=== PATIENT | male | born 1970 | race Caucasian/White ===

== ENCOUNTER 2016-10-30 18:57 | Emergency (ER) | payer MEDICARE, OTHER ==
[~2016-10-30] VITALS: Ht 177.8 cm; Wt 95.0 kg
[~2016-10-30 18:57] MED LIST: ATOR20TA38 PO; CEPH500C PO; CHOL100062 PO; COU10 PO; COU75 PO; DOCU-159 PO; DOCU100C PO; GABA300C16 PO; GABA400C14 PO; IBUP400T22 PO
[2016-10-30 19:17] VITALS: Ht 177.8 cm; Wt 95.0 kg
[2016-10-30] MEDS ORDERED: KETOROLAC 60 MG INJ IM STA (21:12)
[2016-10-30] MEDS ORDERED: HYDROCODONE/APAP (10/325) TAB PO ONE (21:30)
[2016-10-30] MEDS ORDERED: TRAM50TA2 PO (22:23)
[2016-10-30 22:45] VITALS: BP 113/69; PULSE 79
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
== END 2016-10-30 23:00 | disposition home or self-care (01) ==
LOC: FTE 18:57
DX: M54.9 Dorsalgia, unspecified (principal); E11.9 Type 2 diabetes mellitus without complications; F17.210 Nicotine dependence, cigarettes, uncomplicated; Z79.01 Long term (current) use of anticoagulants
CPT/HCPCS: 96372; J1885

== ENCOUNTER 2016-12-26 17:55 | Inpatient (IN) | payer MEDICARE, OTHER ==
[~2016-12-26] VITALS: Ht 175.3 cm; Wt 107.9 kg
[~2016-12-26 17:55] MED LIST changes: +TRAM50TA2 PO
[2016-12-26] MEDS ORDERED: SOD CHLORIDE 0.9% 1,000 ML IV STA (18:38)
[2016-12-26] MEDS ORDERED: IBUPROFEN 600 MG TAB PO ONE (19:00)
[2016-12-26] MEDS ORDERED: GLIP5TAB13 PO (19:09)
[2016-12-26 19:28] LABS: ADD SCAN DIFF NO
[2016-12-26 19:29] LABS: ABNORMAL IP MESSAGE 1; BASOPHIL # 0.1 10^3/ul (0.0-0.1); BASOPHILS % 0.5 % (0.0-2.0); EOSINOPHILS # 0.2 10^3/ul (0.0-0.5); EOSINOPHILS % 1.6 % (0.0-7.0); HEMATOCRIT 45.5 % (42.0-52.0); HEMOGLOBIN 15.4 g/dl (14.0-18.0); LYMPHOCYTES % 27.3 % (15.0-51.0); MEAN CORPUSCULAR HEMOGLOBIN 29.8 pg (29.0-33.0); MEAN CORPUSCULAR HGB CONC 33.8 g/dl (32.0-37.0); MEAN CORPUSCULAR VOLUME 88.2 fl (82.0-101.0); MEAN PLATELET VOLUME 10.8 fl (7.4-10.4); MONOCYTE # 1.6 10^3/ul (0.3-0.9); MONOCYTES % 10.8 % (0.0-11.0); NEUTROPHIL # 8.8 10^3/ul (1.6-7.5); NEUTROPHILS % 59.5 % (39.0-77.0); PLATELET COUNT 287 10^3/UL (140-415); RED BLOOD COUNT 5.16 10^6/ul (4.70-6.10); RED CELL DISTRIBUTION WIDTH 14.8 % (11.5-14.5); WHITE BLOOD COUNT 14.8 10^3/ul (4.8-10.8)
--- NOTE | 2016-12-26 19:37 | RADRPT ---
PROCEDURE: Chest x-ray CLINICAL INDICATION: Abdominal pain TECHNIQUE: Chest single view COMPARISON: 10/29/2013 FINDINGS: The heart is normal in size. The pulmonary vessels are normal in caliber. There is enlarging mass-l marika area of consolidation left lower lobe. This should be further evaluated with CT. Right lung is clear. Costophrenic angles sharp. Bony thorax is unremarkable IMPRESSION: 1. Enlarging mass-like area of consolidation in the left lower lobe. Recommend chest CT for furthe r evaluation. 2. Otherwise no acute cardiopulmonary disease RPTAT: HH .Triston Enamorado MD, Date Time Electronically viewed and signed by .Triston Enamorado MD, on 12/26/2016 19:37 .W/
[2016-12-26 19:48] LABS: ALBUMIN/GLOBULIN RATIO 1.31; BILIRUBIN,INDIRECT 0.3 mg/dl (0-1.1); BILIRUBIN,TOTAL 0.3 mg/dl (0.2-1.3); CALCIUM 9.4 mg/dl (8.4-10.2); CREATININE 0.58 mg/dl (0.61-1.24); POTASSIUM 3.7 mmol/L (3.5-5.1); TOTAL PROTEIN 8.8 g/dl (6.1-8.1)
--- NOTE | 2016-12-26 20:08 | RADRPT ---
PROCEDURE: CT Brain without contrast. CLINICAL INDICATION: 46-year-old male with severe right-sided headache. TECHNIQUE: A CT of the brain was performed on a [employer] CT scanner Baydini ng a low dose technique with axial imaging from the skull base through the vertex without IV contras t. Multiplanar reformatted images were made. Images were reviewed on a PACS workstation. The CTDI vol is 45 mGy and the DLP is 720 mGycm. One or more of the following dose reduction techniques were used: - Automated exposure control. - Adjustment of the mA and/or kV according to patient size. Use of iterative reconstruction technique. COMPARISON: None FINDINGS: The fourth ventricle is small but normal. The third and lateral ventricles are small but normal. N o intracranial hemorrhage is identified. The brain parenchyma is normal with no acute ischemic avelar es identified. The visible portions of the globes and extraocular muscles are normal. The paranasal sinuses are cl ear. The mastoid air cells and internal auditory canals are normal. The bony calvarium is intact. IMPRESSION: 1. Negative CT scan of brain without contrast. 2. No intracranial hemorrhage is identified. RPTAT:AAJJ Physician Isis Date Time Electronically viewed and signed by Physician Isis on 12/26/2016 20:07 LEENA/
[2016-12-26 20:28] LABS: ADD UMIC YES; UR ASCORBIC ACID NEGATIVE (NEGATIVE); UR BILIRUBIN (Dip) NEGATIVE (NEGATIVE); UR BLOOD (Dip) NEGATIVE (NEGATIVE); UR CLARITY SLIGHTLY CLOUDY (CLEAR); UR COLOR YELLOW (YELLOW); UR GLUCOSE (Dip) NEGATIVE (NEGATIVE); UR KETONES (Dip) NEGATIVE (NEGATIVE); UR LEUKOCYTE ESTERASE (Dip) 2+ Leu/ul (NEGATIVE); UR NITRITE (Dip) NEGATIVE (NEGATIVE); UR RBC 1 /HPF (0-5); UR SPECIFIC GRAVITY (Dip) 1.009 (1.003-1.030); UR TOTAL PROTEIN (Dip) NEGATIVE (NEGATIVE); UR UROBILINOGEN (Dip) NEGATIVE (NEGATIVE)
[2016-12-26] MEDS ORDERED: morphine 4 MG/ML VIAL IV STA (20:53)
[2016-12-26] MEDS ORDERED: ONDANSETRON 4 MG INJ IV STA (20:53)
[2016-12-26] MEDS ORDERED: SOD CHLORIDE 0.9% 1,000 ML IV ONE (21:00)
[2016-12-26] MEDS ORDERED: CEFTRIAXONE 1 GM/50 ML (PMX) 50 ML IVPB ONE (21:00)
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
[2016-12-26 22:40] VITALS: TEMP 98.1
[2016-12-27 00:45] VITALS: BP 147/89; RESP 18
[2016-12-27 01:00] VITALS: BP 147/89; PULSE 67; RESP 18; Ht 175.3 cm; Wt 107.9 kg
[2016-12-27] MEDS ORDERED: ACETAMINOPHEN 325 MG TAB PO PRN (02:00)
[2016-12-27] MEDS ORDERED: GLUCAGON 1 MG INJ IM PRN (02:00)
[2016-12-27] MEDS: ACCU-CHEK XX SCH (02:00)
[2016-12-27] MEDS ORDERED: GLUCOSE GEL 15 GRAM TUBE PO PRN ×2 (02:00)
[2016-12-27] MEDS ORDERED: GLUCOSE GEL 15 GRAM TUBE BUCCAL PRN (02:00)
[2016-12-27] MEDS ORDERED: DEXTROSE 50% 50 ML SYRINGE IV PRN ×2 (02:00)
[2016-12-27] MEDS: SOD CHLORIDE 0.45% 1,000 ML IV SCH ×2 (02:02→17:27)
[2016-12-27] MEDS: morphine 2 MG INJ IV PRN ×3 (02:08→17:32)
[2016-12-27] MEDS: INSULIN ASPART [NOVOLOG] 3 ML PEN SC SCH ×4 (08:00→21:00)
[2016-12-27 08:15] VITALS: BP 129/81; RESP 20
[2016-12-27] MEDS: metFORMIN 500 MG TAB PO SCH ×2 (08:18→17:26)
[2016-12-27] MEDS: DOCUSATE SODIUM 100 MG CAP PO SCH ×2 (08:18→21:06)
[2016-12-27] MEDS: GABAPENTIN 400 MG CAP PO SCH ×3 (08:18→21:06)
[2016-12-27] MEDS: SENNA TAB PO SCH ×2 (08:18→21:06)
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
[2016-12-27 20:25] VITALS: BP 131/75; RESP 20
[2016-12-27] MEDS: ATORVASTATIN 20 MG TAB PO SCH (21:06)
[2016-12-27] MEDS: CEFTRIAXONE 1 GM/50 ML (PMX) 50 ML IVPB SCH (21:07)
[2016-12-27] MEDS: ENOXAPARIN 40 MG/0.4 ML SYG SC SCH (21:08)
--- NOTE | 2016-12-27 23:15 | RADRPT ---
PROCEDURE: CT Chest without contrast. CLINICAL INDICATION: Left lower lobe mass-like consolidation TECHNIQUE: CT scan of the chest without contrast was performed on a multidetector high-resolution CT scanner. Coronal and sagittal reformatted images were obtained from the axial source images. The total exam CTDI equals 16.07 mGy and the total exam DLP equals 704.61 mGy-cm. One or more the following dose reduction techniques were utilized: Automated exposure control, adjus tment of the mA and / or kV according to patient's size, or use of iterative reconstruction techniqu e. COMPARISON: Chest x-ray of 12/26/[address] abdomen and pelvis of 06/19/2015 FINDINGS: There is again the appearance of rounded atelectasis/fibrosis in the left lower lobe with associated pleural thickening and opaque sutures not significantly changed compared to the 06/19/2015 CT. No pleural effusion is seen. No enlarged mediastinal lymph nodes are seen. Scattered linear atelectasi s/fibrosis is seen in the lungs. Minimal dependent atelectasis in posterior lungs. There is appeara nce of an approximate 5 mm nodular density based on posterior pleura in the right lower lung lobe wh ich does not appear to be significantly changed compared to previous study or CT abdomen of 10/30/19 14. Comminuted fracture of apparent T12 vertebra with impression on the anterior aspect of the spin al cord also seen on the 06/19/2015 study. IMPRESSION: No acute abnormality seen. Please read chronic changes above. RPTAT: HJES .Allen Garcia MD, MD Date Time Electronically viewed and signed by .Allen Garcia MD, on 12/27/2016 23:15 .S/
[2016-12-28] MEDS: ACCU-CHEK XX SCH (01:59)
[2016-12-28 05:36] LABS: ADD SCAN DIFF NO
[2016-12-28 05:49] LABS: BASOPHIL # 0.1 10^3/ul (0.0-0.1); BASOPHILS % 0.5 % (0.0-2.0); EOSINOPHILS # 0.4 10^3/ul (0.0-0.5); EOSINOPHILS % 2.9 % (0.0-7.0); HEMOGLOBIN 14.9 g/dl (14.0-18.0); LYMPHOCYTES # 4.7 10^3/ul (0.8-2.9); LYMPHOCYTES % 39.2 % (15.0-51.0); MEAN CORPUSCULAR HEMOGLOBIN 30.2 pg (29.0-33.0); MEAN CORPUSCULAR HGB CONC 33.9 g/dl (32.0-37.0); MEAN CORPUSCULAR VOLUME 89.1 fl (82.0-101.0); MEAN PLATELET VOLUME 10.7 fl (7.4-10.4); MONOCYTES % 8.7 % (0.0-11.0); NEUTROPHIL # 5.8 10^3/ul (1.6-7.5); NEUTROPHILS % 48.5 % (39.0-77.0); PLATELET COUNT 319 10^3/UL (140-415); RED BLOOD COUNT 4.94 10^6/ul (4.70-6.10); RED CELL DISTRIBUTION WIDTH 14.9 % (11.5-14.5); WHITE BLOOD COUNT 11.9 10^3/ul (4.8-10.8)
[2016-12-28 06:07] LABS: CALCIUM 9.3 mg/dl (8.4-10.2); CREATININE 0.61 mg/dl (0.61-1.24); POTASSIUM 3.8 mmol/L (3.5-5.1)
[2016-12-28] MEDS: morphine 2 MG INJ IV PRN ×3 (06:26→21:00)
[2016-12-28] MEDS: INSULIN ASPART [NOVOLOG] 3 ML PEN SC SCH ×4 (08:00→21:00)
[2016-12-28] MEDS: SENNA TAB PO SCH ×2 (08:13→21:00)
[2016-12-28] MEDS: DOCUSATE SODIUM 100 MG CAP PO SCH ×2 (08:13→21:28)
[2016-12-28] MEDS: GABAPENTIN 400 MG CAP PO SCH ×3 (08:14→21:29)
[2016-12-28] MEDS: ENOXAPARIN 40 MG/0.4 ML SYG SC SCH (08:14)
[2016-12-28] MEDS: metFORMIN 500 MG TAB PO SCH ×2 (08:14→17:27)
[2016-12-28 08:59] VITALS: BP 120/73; RESP 17
[2016-12-28] MEDS: SOD CHLORIDE 0.45% 1,000 ML IV SCH (12:57)
--- NOTE | 2016-12-28 13:24 | CONS ---
Date/Time of Note Date/Time of Note DATE: 12/28/16 TIME: 13:24 Consultation Date/Type/Reason Admit Date/Time Dec 26, 2016 at 21:04 Date of Consultation: Dec 28, 2016 Type of Consultation: pulmonary Hx of Present Illness dictated. [id number] Respiratory: no complaints Cardiovascular: no complaints Gastrointestinal: no complaints Genitourinary: dysuria Psychological: nl mood/affect Past Medical History Medical History: deep vein thrombosis Social History Alcohol Use: none Smoking Status: Never smoker Drug Use: none Exam/Review of Systems Vital Signs Vitals Vital Signs Date Time Temp Pulse Resp B/P Pulse Ox O2 Delivery O2 Flow Rate FiO2 12/28/16 08:59 98.0 83 17 120/73 96 12/27/16 01:00 Room Air Intake and Output 12/27/16 12/27/16 12/28/16 15:00 23:00 07:00 Intake Total 2870 ml 1700 ml Output Total 2800 ml 1700 ml Balance 70 ml 0 ml Results Result Diagram: 12/28/16 0455 12/28/16 0455 Results 24 hrs Laboratory Tests Test 12/27/16 17:25 12/27/16 21:04 12/28/16 04:55 12/28/16 08:06 Bedside Glucose 126 118 124 White Blood Count 11.9 H Red Blood Count 4.94 Hemoglobin 14.9 Hematocrit 44.0 Mean Corpuscular Volume 89.1 Mean Corpuscular Hemoglobin 30.2 Mean Corpuscular Hemoglobin Concent 33.9 Red Cell Distribution Width 14.9 H Platelet Count 319 Mean Platelet Volume 10.7 H Neutrophils % 48.5 Lymphocytes % 39.2 Monocytes % 8.7 Eosinophils % 2.9 Basophils % 0.5 Nucleated Red Blood Cells % 0.0 Neutrophils # 5.8 Lymphocytes # 4.7 H Monocytes # 1.0 H Eosinophils # 0.4 Basophils # 0.1 Nucleated Red Blood Cells # 0.0 Sodium Level 140 Potassium Level 3.8 Chloride Level 102 Carbon Dioxide Level 26 Anion Gap 16 Blood Urea Nitrogen 12 Creatinine 0.61 Glucose Level 150 Hemoglobin A1c 7.4 H Calcium Level 9.3 Test 12/28/16 11:57 Bedside Glucose 109 Medications Medications Current Medications Ceftriaxone Sodium 50 ml @ 100 mls/hr Q24H IVPB Last administered on t 21:07; Admin Dose 100 MLS/HR; Start 12/27/16 at 21:00 Sodium Chloride (1/2 NS) 1,000 ml @ 60 mls/hr [id number] IV Last administered on 12/28/16 12:57; Admin Dose 60 MLS/HR; Start 12/27/16 at 02:00 Acetaminophen (Tylenol Tab) 650 mg Q4H PRN PO PAIN AND OR ELEVATED TEMP; Start 12/27/16 at 02:00 Morphine Sulfate (morphine) 2 mg Q4H PRN IV PAIN Last administered on 12:58; Admin Dose 2 MG; Start 12/27/16 at 02:00 Gabapentin (Neurontin) 400 mg TID PO Last administered on 12/28/16 12:58; Admin Dose 400 MG; Start 12/27/16 at 09:00 Diagnostic Test (Pha) (Accu-Chek) 1 ea 02 XX ; Start 12/27/16 at 02:00 Docusate Sodium (Colace) 100 mg BID PO Last administered on 12/28/16 08:13; Admin Dose 100 MG; Start 12/27/16 at 09:00 Senna (Senokot) 2 tab BID PO Last administered on 12/28/16 08:13; Admin Dose 2 TAB; Start 12/27/16 at 09:00 Miscellaneous Information 1 ea NOTE XX ; Start 12/27/16 at 02:00 Glucose (Glutose) 15 gm Q15M PRN PO DECREASED GLUCOSE; Start 12/27/16 at 02:00 Glucose (Glutose) 22.5 gm Q15M PRN PO DECREASED GLUCOSE; Start 12/27/16 at 02: 00 Dextrose (D50w Syringe) 25 ml Q15M PRN IV DECREASED GLUCOSE; Start 12/27/16 at 02:00 Dextrose (D50w Syringe) 50 ml Q15M PRN IV DECREASED GLUCOSE; Start 12/27/16 at 02:00 Glucagon (Glucagen) 1 mg Q15M PRN IM DECREASED GLUCOSE; Start 12/27/16 at 02:00 Glucose (Glutose) 15 gm Q15M PRN BUCCAL DECREASED GLUCOSE; Start 12/27/16 at 02 :00 Miscellaneous Information Patients own medicat... BID@10,16 XX ; Start 12/27/16 at 10:00 Atorvastatin Calcium (Lipitor) 20 mg HS PO Last administered on 12/27/16 21:06 ; Admin Dose 20 MG; Start 12/27/16 at 21:00 Enoxaparin Sodium (Lovenox) 40 mg DAILY SC Last administered on 12/28/16 08:14 ; Admin Dose 40 MG; Start 12/27/16 at 19:00 BRUCE AYERS Dec 28, 2016 13:24
--- NOTE | 2016-12-28 13:56 | CONS ---
DATE OF ADMISSION: 12/26/2016 DATE OF CONSULTATION: 12/28/2016 TYPE OF CONSULTATION: Pulmonary REFERRING PHYSICIAN: Topher Vazquez MD REASON FOR REFERRAL: Evaluation of abnormal CT chest. HISTORY OF PRESENT ILLNESS: Mr. Deshpande is a 46-year-old male who came into the emergency ro om with a 1-day history of headache. Upon further evaluation, workup was done including a CT of the brain which was unremarkable. The patient was incidentally discovered to have mild UTI and was adm itted for further treatment. He underwent a CT of the chest which is showing what appears to be fib rotic areas in the left lower lobe area. I have been consulted mainly for evaluation of that. The patient denies any respiratory symptoms whatsoever. Denies any chest pain, fever, wheezing, any uri nary symptoms. The patient because of neurogenic bladder has to catheterize himself. PAST MEDICAL HISTORY: 1. Paraplegia with neurogenic bladder. 2. Diabetes. 3. Neuropathy. 4. Chronic pain. 5. Hyperlipidemia. 6. History of DVT. MEDICATIONS: The patient currently is on: 1. Rocephin 1 gram IV daily. 2. Normal saline at 60 mL/hour. 3. Colace 100 mg b.i.d. 4. Lovenox 40 mg a day. 5. Neurontin 400 mg t.i.d. 6. Metformin 1 gram daily. 7. Morphine on a p.r.n. basis. ALLERGIES: NONE. SOCIAL HISTORY: The patient never smoked. No history of alcohol or drug abuse. FAMILY HISTORY: Noncontributory. Various family members do have diabetes, hypertension. OCCUPATIONAL HISTORY: The patient is on disability. REVIEW OF SYSTEMS: Denies any headache, visual changes, sinus symptoms, postnasal drip, dysphagia, odynophagia, sore throat, chest pain, coughing, wheezing, sputum production, abdominal pain, nausea, vomiting, melena, hematochezia, edema. Denies any orthopnea. Denies any weight change. Has good appetite. Complains of neurogenic bladder and has to self-catheterize himself on a daily basis. PHYSICAL EXAMINATION: GENERAL: Young male, awake, alert, currently in no distress. VITAL SIGNS: Temperature is 98 degrees Fahrenheit, respiratory rate is 18 per minute, O2 saturation 96% on room air, heart rate 82 per minute, blood pressure 120/73. HEENT/NECK: Supple neck. No JVD. No lymphadenopathy. Midline trachea. No thyromegaly. Pharynx clear. No neck bruits. The patient has fair dentition. Pupils are mid size and reactive to light. CHEST: Clear to auscultation. HEART: S1, S2 audible. No murmurs, regular rhythm. ABDOMEN: Soft, nontender, nondistended. Bowel sounds audible. EXTREMITIES: No peripheral edema. Pulses 1+ bilaterally. CENTRAL NERVOUS SYSTEM: The patient has stable paraplegia. IMAGING: CT chest was reviewed from yesterday, which is showing benign-appearing pleural-based left lower lobe mass-like lesion. The patient's findings are stable since 06/2015 CT imaging of the [facility]. LABORATORY DATA: Labs today, white count is 11.9, hemoglobin 14.9, platelet count of 319. Sodium 1 40, potassium 3.8, chloride 102, bicarbonate 22, BUN is 12, creatinine 0.6. ASSESSMENT AND PLAN: 1. The patient admitted for headache with interval improvement. Incidental discovery of left lower lobe pleural-based lesion which is stable since 06/2015 CT imaging of the chest. Findings on the c urrent imaging point towards a benign etiology. 2. Paraplegia. 3. Neurogenic bladder. 4. Escherichia coli urinary tract infection. RECOMMENDATIONS: Continue current treatment. As far as the lung findings are concerned, no further workup is warranted. Dictated By: BRUCE INTERIANO/ZENA Conf#: [id number] DID#: [id number]
--- NOTE | 2016-12-28 14:58 | PN ---
Date/Time of Note Date/Time of Note DATE: 12/28/16 TIME: 14:49 Assessment/Plan VTE Prophylaxis VTE Prophylaxis Intervention: SCD's Lines/Catheters IV [facility]ter Type (from [facility] Peripheral IV Urinary Cath still in place: No Assessment/Plan Chief Complaint/Hosp Course patient denies fever, headache is well controlled Assessment/Plan - Complicated UTI, Continue Rocephin. - Acute non intractable tension-type headache- CT negative - Enlarging mass-like area of consolidation in the left lower lobe. Dr Cortes is following in Pulmonology consultation. - Systemic inflammatory response syndrome with leukocytosis secondary to urinary tract infection. - Paraplegia. - Neurogenic bladder - Peripheral neuropathy. - History of deep venous thrombosis. - Diabetes mellitus. Problems: Exam/Review of Systems Vital Signs Vitals Vital Signs Date Time Temp Pulse Resp B/P Pulse Ox O2 Delivery O2 Flow Rate FiO2 12/28/16 08:59 98.0 83 17 120/73 96 12/27/16 01:00 Room Air Intake and Output 12/27/16 12/27/16 12/28/16 15:00 23:00 07:00 Intake Total 2870 ml 1700 ml Output Total 2800 ml 1700 ml Balance 70 ml 0 ml Exam Constitutional: alert, oriented Psych: no complaints Neck: supple Respiratory: clear to auscultation Cardiovascular: nl pulses Gastrointestinal: non-tender, soft Extremities: normal pulses (paraplegic) Skin: nl turgor Results Result Diagram: 12/28/16 0455 12/28/16 0455 Results 24 hrs Laboratory Tests Test 12/27/16 17:25 12/27/16 21:04 12/28/16 04:55 12/28/16 08:06 Bedside Glucose 126 118 124 White Blood Count 11.9 H Red Blood Count 4.94 Hemoglobin 14.9 Hematocrit 44.0 Mean Corpuscular Volume 89.1 Mean Corpuscular Hemoglobin 30.2 Mean Corpuscular Hemoglobin Concent 33.9 Red Cell Distribution Width 14.9 H Platelet Count 319 Mean Platelet Volume 10.7 H Neutrophils % 48.5 Lymphocytes % 39.2 Monocytes % 8.7 Eosinophils % 2.9 Basophils % 0.5 Nucleated Red Blood Cells % 0.0 Neutrophils # 5.8 Lymphocytes # 4.7 H Monocytes # 1.0 H Eosinophils # 0.4 Basophils # 0.1 Nucleated Red Blood Cells # 0.0 Sodium Level 140 Potassium Level 3.8 Chloride Level 102 Carbon Dioxide Level 26 Anion Gap 16 Blood Urea Nitrogen 12 Creatinine 0.61 Glucose Level 150 Hemoglobin A1c 7.4 H Calcium Level 9.3 Test 12/28/16 11:57 Bedside Glucose 109 Medications Medications Current Medications Ceftriaxone Sodium 50 ml @ 100 mls/hr Q24H IVPB Last administered on 21:07; Admin Dose 100 MLS/HR; Start 12/27/16 at 21:00 Sodium Chloride (1/2 NS) 1,000 ml @ 60 mls/hr [id number] IV Last administered on 12/28/16 12:57; Admin Dose 60 MLS/HR; Start 12/27/16 at 02:00 Acetaminophen (Tylenol Tab) 650 mg Q4H PRN PO PAIN AND OR ELEVATED TEMP; Start 12/27/16 at 02:00 Morphine Sulfate (morphine) 2 mg Q4H PRN IV PAIN Last administered on 12:58; Admin Dose 2 MG; Start 12/27/16 at 02:00 Gabapentin (Neurontin) 400 mg TID PO Last administered on 12/28/16 12:58; Admin Dose 400 MG; Start 12/27/16 at 09:00 Diagnostic Test (Pha) (Accu-Chek) 1 ea 02 XX ; Start 12/27/16 at 02:00 Docusate Sodium (Colace) 100 mg BID PO Last administered on 12/28/16 08:13; Admin Dose 100 MG; Start 12/27/16 at 09:00 Senna (Senokot) 2 tab BID PO Last administered on 12/28/16 08:13; Admin Dose 2 TAB; Start 12/27/16 at 09:00 Miscellaneous Information 1 ea NOTE XX ; Start 12/27/16 at 02:00 Glucose (Glutose) 15 gm Q15M PRN PO DECREASED GLUCOSE; Start 12/27/16 at 02:00 Glucose (Glutose) 22.5 gm Q15M PRN PO DECREASED GLUCOSE; Start 12/27/16 at 02: 00 Dextrose (D50w Syringe) 25 ml Q15M PRN IV DECREASED GLUCOSE; Start 12/27/16 at 02:00 Dextrose (D50w Syringe) 50 ml Q15M PRN IV DECREASED GLUCOSE; Start 12/27/16 at 02:00 Glucagon (Glucagen) 1 mg Q15M PRN IM DECREASED GLUCOSE; Start 12/27/16 at 02:00 Glucose (Glutose) 15 gm Q15M PRN BUCCAL DECREASED GLUCOSE; Start 12/27/16 at 02 :00 Miscellaneous Information Patients own medicat... BID@10,16 XX ; Start 12/27/16 at 10:00 Atorvastatin Calcium (Lipitor) 20 mg HS PO Last administered on 12/27/16 21:06 ; Admin Dose 20 MG; Start 12/27/16 at 21:00 Enoxaparin Sodium (Lovenox) 40 mg DAILY SC Last administered on 12/28/16 08:14 ; Admin Dose 40 MG; Start 12/27/16 at 19:00 ANA MOYA Dec 28, 2016 14:58
[2016-12-28 21:28] VITALS: BP 127/75; RESP 18
[2016-12-28] MEDS: ATORVASTATIN 20 MG TAB PO SCH (21:28)
[2016-12-28] MEDS: CEFTRIAXONE 1 GM/50 ML (PMX) 50 ML IVPB SCH (21:28)
[2016-12-29] MEDS: ACCU-CHEK XX SCH (02:00)
[2016-12-29] MEDS: SOD CHLORIDE 0.45% 1,000 ML IV SCH ×2 (04:00→20:10)
[2016-12-29 05:45] LABS: ADD SCAN DIFF NO
[2016-12-29 05:50] LABS: BASOPHIL # 0.1 10^3/ul (0.0-0.1); BASOPHILS % 0.7 % (0.0-2.0); EOSINOPHILS # 0.4 10^3/ul (0.0-0.5); EOSINOPHILS % 3.6 % (0.0-7.0); HEMATOCRIT 45.9 % (42.0-52.0); HEMOGLOBIN 15.1 g/dl (14.0-18.0); LYMPHOCYTES % 40.2 % (15.0-51.0); MEAN CORPUSCULAR HEMOGLOBIN 29.3 pg (29.0-33.0); MEAN CORPUSCULAR HGB CONC 32.9 g/dl (32.0-37.0); MEAN PLATELET VOLUME 10.9 fl (7.4-10.4); MONOCYTE # 1.1 10^3/ul (0.3-0.9); MONOCYTES % 10.4 % (0.0-11.0); NEUTROPHIL # 4.5 10^3/ul (1.6-7.5); PLATELET COUNT 338 10^3/UL (140-415); RED BLOOD COUNT 5.16 10^6/ul (4.70-6.10); RED CELL DISTRIBUTION WIDTH 14.6 % (11.5-14.5); WHITE BLOOD COUNT 10.1 10^3/ul (4.8-10.8)
[2016-12-29 06:14] LABS: CALCIUM 9.4 mg/dl (8.4-10.2); CREATININE 0.57 mg/dl (0.61-1.24); POTASSIUM 4.1 mmol/L (3.5-5.1)
[2016-12-29] MEDS: morphine 2 MG INJ IV PRN ×3 (06:48→21:05)
[2016-12-29] MEDS: INSULIN ASPART [NOVOLOG] 3 ML PEN SC SCH ×4 (08:00→21:00)
[2016-12-29] MEDS: GABAPENTIN 400 MG CAP PO SCH ×3 (08:10→21:06)
[2016-12-29] MEDS: SENNA TAB PO SCH ×2 (08:10→21:00)
[2016-12-29] MEDS: DOCUSATE SODIUM 100 MG CAP PO SCH ×2 (08:10→21:00)
[2016-12-29] MEDS: metFORMIN 500 MG TAB PO SCH ×2 (08:11→17:43)
[2016-12-29] MEDS: ENOXAPARIN 40 MG/0.4 ML SYG SC SCH (08:12)
[2016-12-29 09:00] VITALS: BP 139/69; RESP 16
--- NOTE | 2016-12-29 13:38 | PN ---
Date/Time of Note Date/Time of Note DATE: 12/29/16 TIME: 13:37 Assessment/Plan VTE Prophylaxis VTE Prophylaxis Intervention: other Lines/Catheters [facility] Peripheral IV Urinary Cath still in place: No Assessment/Plan Chief Complaint/Hosp Course - Complicated UTI, Continue Rocephin. - Acute non intractable tension-type headache- CT negative - Enlarging mass-like area of consolidation in the left lower lobe. Dr Cortes is following in Pulmonology consultation. - Systemic inflammatory response syndrome with leukocytosis secondary to urinary tract infection. - Paraplegia. - Neurogenic bladder - Peripheral neuropathy. - History of deep venous thrombosis. - Diabetes mellitus. Problems: Subjective 24 Hr Interval Summary Free Text/Dictation Patient denies any complaints Exam/Review of Systems Vital Signs Vitals Vital Signs Date Time Temp Pulse Resp B/P Pulse Ox O2 Delivery O2 Flow Rate FiO2 12/29/16 09:00 97.7 79 16 139/69 96 12/27/16 01:00 Room Air Intake and Output 12/28/16 12/28/16 12/29/16 15:00 23:00 07:00 Intake Total 50 ml 500 ml Output Total 1450 ml Balance 50 ml -950 ml Exam Constitutional: well developed Head: atraumatic, normocephalic Neck: supple Respiratory: clear to auscultation Cardiovascular: regular rate and rhythm Gastrointestinal: non-tender, soft Extremities: normal pulses Results Result Diagram: 12/29/16 0505 12/29/16 0505 Results 24 hrs Laboratory Tests Test 12/28/16 17:26 12/28/16 21:26 12/29/16 05:05 12/29/16 07:58 Bedside Glucose 105 131 115 White Blood Count 10.1 Red Blood Count 5.16 Hemoglobin 15.1 Hematocrit 45.9 Mean Corpuscular Volume 89.0 Mean Corpuscular Hemoglobin 29.3 Mean Corpuscular Hemoglobin Concent 32.9 Red Cell Distribution Width 14.6 H Platelet Count 338 Mean Platelet Volume 10.9 H Neutrophils % 45.0 Lymphocytes % 40.2 Monocytes % 10.4 Eosinophils % 3.6 Basophils % 0.7 Nucleated Red Blood Cells % 0.0 Neutrophils # 4.5 Lymphocytes # 4.0 H Monocytes # 1.1 H Eosinophils # 0.4 Basophils # 0.1 Nucleated Red Blood Cells # 0.0 Sodium Level 138 Potassium Level 4.1 Chloride Level 101 Carbon Dioxide Level 28 Anion Gap 13 Blood Urea Nitrogen 12 Creatinine 0.57 L Glucose Level 111 Calcium Level 9.4 Test 12/29/16 12:13 Bedside Glucose 111 Medications Medications Current Medications Ceftriaxone Sodium 50 ml @ 100 mls/hr Q24H IVPB Last administered on 21:28; Admin Dose 100 MLS/HR; Start 12/27/16 at 21:00 Sodium Chloride (1/2 NS) 1,000 ml @ 60 mls/hr [id number] IV Last administered on 12/28/16 12:57; Admin Dose 60 MLS/HR; Start 12/27/16 at 02:00 Acetaminophen (Tylenol Tab) 650 mg Q4H PRN PO PAIN AND OR ELEVATED TEMP; Start 12/27/16 at 02:00 Morphine Sulfate (morphine) 2 mg Q4H PRN IV PAIN Last administered on 13:33; Admin Dose 2 MG; Start 12/27/16 at 02:00 Gabapentin (Neurontin) 400 mg TID PO Last administered on 12/29/16 13:31; Admin Dose 400 MG; Start 12/27/16 at 09:00 Diagnostic Test (Pha) (Accu-Chek) 1 ea 02 XX ; Start 12/27/16 at 02:00 Docusate Sodium (Colace) 100 mg BID PO Last administered on 12/29/16 08:10; Admin Dose 100 MG; Start 12/27/16 at 09:00 Senna (Senokot) 2 tab BID PO Last administered on 12/29/16 08:10; Admin Dose 2 TAB; Start 12/27/16 at 09:00 Miscellaneous Information 1 ea NOTE XX ; Start 12/27/16 at 02:00 Glucose (Glutose) 15 gm Q15M PRN PO DECREASED GLUCOSE; Start 12/27/16 at 02:00 Glucose (Glutose) 22.5 gm Q15M PRN PO DECREASED GLUCOSE; Start 12/27/16 at 02: 00 Dextrose (D50w Syringe) 25 ml Q15M PRN IV DECREASED GLUCOSE; Start 12/27/16 at 02:00 Dextrose (D50w Syringe) 50 ml Q15M PRN IV DECREASED GLUCOSE; Start 12/27/16 at 02:00 Glucagon (Glucagen) 1 mg Q15M PRN IM DECREASED GLUCOSE; Start 12/27/16 at 02:00 Glucose (Glutose) 15 gm Q15M PRN BUCCAL DECREASED GLUCOSE; Start 12/27/16 at 02 :00 Miscellaneous Information Patients own medicat... BID@10,16 XX ; Start 12/27/16 at 10:00 Atorvastatin Calcium (Lipitor) 20 mg HS PO Last administered on 12/28/16 21:28 ; Admin Dose 20 MG; Start 12/27/16 at 21:00 Enoxaparin Sodium (Lovenox) 40 mg DAILY SC Last administered on 12/29/16 08:12 ; Admin Dose 40 MG; Start 12/27/16 at 19:00 NATALIO GARCIA Dec 29, 2016 13:38
[2016-12-29 20:34] VITALS: BP 133/75; RESP 19
[2016-12-29] MEDS: ATORVASTATIN 20 MG TAB PO SCH (21:06)
[2016-12-29] MEDS: CEFTRIAXONE 1 GM/50 ML (PMX) 50 ML IVPB SCH (21:06)
[2016-12-30] MEDS: ACCU-CHEK XX SCH (01:49)
[2016-12-30] MEDS: morphine 2 MG INJ IV PRN ×3 (06:40→19:38)
[2016-12-30 07:40] VITALS: BP 111/68; RESP 16
[2016-12-30] MEDS: INSULIN ASPART [NOVOLOG] 3 ML PEN SC SCH ×4 (08:00→20:07)
[2016-12-30] MEDS: SENNA TAB PO SCH ×2 (08:36→20:07)
[2016-12-30] MEDS: DOCUSATE SODIUM 100 MG CAP PO SCH ×2 (08:36→20:05)
[2016-12-30] MEDS: GABAPENTIN 400 MG CAP PO SCH ×3 (08:36→20:05)
[2016-12-30] MEDS: metFORMIN 500 MG TAB PO SCH ×2 (08:36→17:52)
[2016-12-30] MEDS: ENOXAPARIN 40 MG/0.4 ML SYG SC SCH (08:37)
[2016-12-30] MEDS: SOD CHLORIDE 0.45% 1,000 ML IV SCH ×2 (12:33→20:10)
--- NOTE | 2016-12-30 13:04 | PN ---
Date/Time of Note Date/Time of Note DATE: 12/30/16 TIME: 13:04 Assessment/Plan VTE Prophylaxis VTE Prophylaxis Intervention: other Lines/Catheters [facility] Type [facility]from [facility] Peripheral IV Urinary Cath still in place: No Assessment/Plan Chief Complaint/Hosp Course - Complicated UTI, Continue Rocephin. - Acute non intractable tension-type headache- CT negative - Enlarging mass-like area of consolidation in the left lower lobe. Dr Cortes is following in Pulmonology consultation. - Systemic inflammatory response syndrome with leukocytosis secondary to urinary tract infection. - Paraplegia. - Neurogenic bladder - Peripheral neuropathy. - History of deep venous thrombosis. - Diabetes mellitus. Problems: Subjective 24 Hr Interval Summary Free Text/Dictation Patient has no complaints Exam/Review of Systems Vital Signs Vitals Vital Signs Date Time Temp Pulse Resp B/P Pulse Ox O2 Delivery O2 Flow Rate FiO2 12/30/16 07:40 97.6 83 16 111/68 96 12/27/16 01:00 Room Air Intake and Output 12/29/16 12/29/16 12/30/16 15:00 23:00 07:00 Intake Total 1650 ml 810 ml Output Total 1200 ml 1280 ml Balance 450 ml -470 ml Exam Constitutional: well developed Head: atraumatic, normocephalic Neck: supple Respiratory: clear to auscultation Cardiovascular: regular rate and rhythm Gastrointestinal: non-tender, soft Extremities: normal pulses Results Result Diagram: 12/29/16 0505 12/29/16 0505 Results 24 hrs Laboratory Tests Test 12/29/16 17:20 12/29/16 21:22 12/30/16 08:21 12/30/16 12:30 Bedside Glucose 122 134 115 143 Medications Medications Current Medications Ceftriaxone Sodium 50 ml @ 100 mls/hr Q24H IVPB Last administered on 21:06; Admin Dose 100 MLS/HR; Start 12/27/16 at 21:00 Sodium Chloride (1/2 NS) 1,000 ml @ 60 mls/hr [id number] IV Last administered on 12/29/16 20:10; Admin Dose 60 MLS/HR; Start 12/27/16 at 02:00 Acetaminophen (Tylenol Tab) 650 mg Q4H PRN PO PAIN AND OR ELEVATED TEMP; Start 12/27/16 at 02:00 Morphine Sulfate (morphine) 2 mg Q4H PRN IV PAIN Last administered on 12:51; Admin Dose 2 MG; Start 12/27/16 at 02:00 Gabapentin (Neurontin) 400 mg TID PO Last administered on 12/30/16 12:51; Admin Dose 400 MG; Start 12/27/16 at 09:00 Diagnostic Test (Pha) (Accu-Chek) 1 ea 02 XX ; Start 12/27/16 at 02:00 Docusate Sodium (Colace) 100 mg BID PO Last administered on 12/30/16 08:36; Admin Dose 100 MG; Start 12/27/16 at 09:00 Senna (Senokot) 2 tab BID PO Last administered on 12/30/16 08:36; Admin Dose 2 TAB; Start 12/27/16 at 09:00 Miscellaneous Information 1 ea NOTE XX ; Start 12/27/16 at 02:00 Glucose (Glutose) 15 gm Q15M PRN PO DECREASED GLUCOSE; Start 12/27/16 at 02:00 Glucose (Glutose) 22.5 gm Q15M PRN PO DECREASED GLUCOSE; Start 12/27/16 at 02: 00 Dextrose (D50w Syringe) 25 ml Q15M PRN IV DECREASED GLUCOSE; Start 12/27/16 at 02:00 Dextrose (D50w Syringe) 50 ml Q15M PRN IV DECREASED GLUCOSE; Start 12/27/16 at 02:00 Glucagon (Glucagen) 1 mg Q15M PRN IM DECREASED GLUCOSE; Start 12/27/16 at 02:00 Glucose (Glutose) 15 gm Q15M PRN BUCCAL DECREASED GLUCOSE; Start 12/27/16 at 02 :00 Miscellaneous Information Patients own medicat... BID@ XX ; Start 12/27/16 at 10:00 Atorvastatin Calcium (Lipitor) 20 mg HS PO Last administered on 12/29/16 21:06 ; Admin Dose 20 MG; Start 12/27/16 at 21:00 Enoxaparin Sodium (Lovenox) 40 mg DAILY SC Last administered on 12/30/16 08:37 ; Admin Dose 40 MG; Start 12/27/16 at 19:00 Simethicone (Mylicon) 80 mg Q6 PRN PO DISTENSION/GAS/BLOATING Last administered on 12/29/16t 22:30; Admin Dose 80 MG; Start 12/29/16 at 22:00 NATALIO GARCIA Dec 30, 2016 13:04
[2016-12-30] MEDS: CEFTRIAXONE 1 GM/50 ML (PMX) 50 ML IVPB SCH (20:03)
[2016-12-30] MEDS: ATORVASTATIN 20 MG TAB PO SCH (20:05)
[2016-12-30 21:17] VITALS: BP 121/70; RESP 18
[2016-12-31] MEDS: morphine 2 MG INJ IV PRN ×5 (01:17→20:55)
[2016-12-31] MEDS: ACCU-CHEK XX SCH (01:22)
[2016-12-31 06:33] LABS: ADD SCAN DIFF NO
[2016-12-31 06:34] LABS: BASOPHIL # 0.1 10^3/ul (0.0-0.1); BASOPHILS % 0.6 % (0.0-2.0); EOSINOPHILS # 0.4 10^3/ul (0.0-0.5); HEMATOCRIT 45.8 % (42.0-52.0); HEMOGLOBIN 15.3 g/dl (14.0-18.0); LYMPHOCYTES # 3.9 10^3/ul (0.8-2.9); LYMPHOCYTES % 39.8 % (15.0-51.0); MEAN CORPUSCULAR HEMOGLOBIN 29.6 pg (29.0-33.0); MEAN CORPUSCULAR HGB CONC 33.4 g/dl (32.0-37.0); MEAN CORPUSCULAR VOLUME 88.6 fl (82.0-101.0); MEAN PLATELET VOLUME 11.3 fl (7.4-10.4); MONOCYTE # 1.1 10^3/ul (0.3-0.9); MONOCYTES % 10.8 % (0.0-11.0); NEUTROPHIL # 4.4 10^3/ul (1.6-7.5); NEUTROPHILS % 44.7 % (39.0-77.0); PLATELET COUNT 304 10^3/UL (140-415); RED BLOOD COUNT 5.17 10^6/ul (4.70-6.10); RED CELL DISTRIBUTION WIDTH 14.7 % (11.5-14.5); WHITE BLOOD COUNT 9.8 10^3/ul (4.8-10.8)
[2016-12-31 07:13] LABS: CALCIUM 9.3 mg/dl (8.4-10.2); CREATININE 0.58 mg/dl (0.61-1.24); POTASSIUM 3.9 mmol/L (3.5-5.1)
[2016-12-31] MEDS: INSULIN ASPART [NOVOLOG] 3 ML PEN SC SCH ×5 (08:00→21:00)
[2016-12-31 08:17] VITALS: BP 119/71; RESP 16
[2016-12-31] MEDS: DOCUSATE SODIUM 100 MG CAP PO SCH ×2 (08:26→20:54)
[2016-12-31] MEDS: GABAPENTIN 400 MG CAP PO SCH ×3 (08:26→20:54)
[2016-12-31] MEDS: metFORMIN 500 MG TAB PO SCH ×2 (08:26→17:54)
[2016-12-31] MEDS: ENOXAPARIN 40 MG/0.4 ML SYG SC SCH (08:27)
[2016-12-31] MEDS: SENNA TAB PO SCH ×2 (08:37→20:54)
--- NOTE | 2016-12-31 14:59 | PN ---
Date/Time of Note Date/Time of Note DATE: 12/31/16 TIME: 14:58 Assessment/Plan VTE Prophylaxis VTE Prophylaxis Intervention: SCD's Lines/Catheters IV [facility]ter Type (from [facility]): Peripheral IV Urinary Cath still in place: No Assessment/Plan Chief Complaint/Hosp Course Patient looks comfortable, blood sugar is well controlled. Assessment/Plan - Complicated UTI, Continue Rocephin. - Acute non intractable tension-type headache- CT negative - Enlarging mass-like area of consolidation in the left lower lobe. Dr Cortes is following in Pulmonology consultation. - Systemic inflammatory response syndrome with leukocytosis secondary to urinary tract infection. - Paraplegia. - Neurogenic bladder - Peripheral neuropathy. - History of deep venous thrombosis. - Diabetes mellitus. Problems: Exam/Review of Systems Vital Signs Vitals Vital Signs Date Time Temp Pulse Resp B/P Pulse Ox O2 Delivery O2 Flow Rate FiO2 12/31/16 08:17 97.8 82 16 119/71 96 Intake and Output 12/30/16 12/30/16 12/31/16 15:00 23:00 07:00 Intake Total 1310 ml 740 ml Output Total 1400 ml 1000 ml Balance -90 ml -260 ml Exam Constitutional: alert, oriented Psych: no complaints Neck: supple Respiratory: clear to auscultation Cardiovascular: nl pulses Gastrointestinal: non-tender, soft Extremities: normal pulses (paraplegic) Skin: nl turgor Results Result Diagram: 12/31/16 0520 12/31/16 0520 Results 24 hrs Laboratory Tests Test 12/30/16 17:38 12/30/16 19:36 12/31/16 05:20 12/31/16 08:17 Bedside Glucose 111 142 126 White Blood Count 9.8 Red Blood Count 5.17 Hemoglobin 15.3 Hematocrit 45.8 Mean Corpuscular Volume 88.6 Mean Corpuscular Hemoglobin 29.6 Mean Corpuscular Hemoglobin Concent 33.4 Red Cell Distribution Width 14.7 H Platelet Count 304 Mean Platelet Volume 11.3 H Neutrophils % 44.7 Lymphocytes % 39.8 Monocytes % 10.8 Eosinophils % 4.0 Basophils % 0.6 Nucleated Red Blood Cells % 0.0 Neutrophils # 4.4 Lymphocytes # 3.9 H Monocytes # 1.1 H Eosinophils # 0.4 Basophils # 0.1 Nucleated Red Blood Cells # 0.0 Sodium Level 139 Potassium Level 3.9 Chloride Level 102 Carbon Dioxide Level 26 Anion Gap 15 Blood Urea Nitrogen 14 Creatinine 0.58 L Glucose Level 104 Calcium Level 9.3 Test 12/31/16 12:06 Bedside Glucose 98 Medications Medications Current Medications Ceftriaxone Sodium 50 ml @ 100 mls/hr Q24H IVPB Last administered on 20:03; Admin Dose 100 MLS/HR; Start 12/27/16 at 21:00 Sodium Chloride (1/2 NS) 1,000 ml @ 60 mls/hr [id number] IV Last administered on 12/30/16 20:10; Admin Dose 60 MLS/HR; Start 12/27/16 at 02:00 Acetaminophen (Tylenol Tab) 650 mg Q4H PRN PO PAIN AND OR ELEVATED TEMP; Start 12/27/16 at 02:00 Morphine Sulfate (morphine) 2 mg Q4H PRN IV PAIN Last administered on 10:57; Admin Dose 2 MG; Start 12/27/16 at 02:00 Gabapentin (Neurontin) 400 mg TID PO Last administered on 12/31/16 13:22; Admin Dose 400 MG; Start 12/27/16 at 09:00 Diagnostic Test (Pha) (Accu-Chek) 1 ea 02 XX ; Start 12/27/16 at 02:00 Docusate Sodium (Colace) 100 mg BID PO Last administered on 12/31/16 08:26; Admin Dose 100 MG; Start 12/27/16 at 09:00 Senna (Senokot) 2 tab BID PO Last administered on 12/30/16 08:36; Admin Dose 2 TAB; Start 12/27/16 at 09:00 Miscellaneous Information 1 ea NOTE XX ; Start 12/27/16 at 02:00 Glucose (Glutose) 15 gm Q15M PRN PO DECREASED GLUCOSE; Start 12/27/16 at 02:00 Glucose (Glutose) 22.5 gm Q15M PRN PO DECREASED GLUCOSE; Start 12/27/16 at 02: 00 Dextrose (D50w Syringe) 25 ml Q15M PRN IV DECREASED GLUCOSE; Start 12/27/16 at 02:00 Dextrose (D50w Syringe) 50 ml Q15M PRN IV DECREASED GLUCOSE; Start 12/27/16 at 02:00 Glucagon (Glucagen) 1 mg Q15M PRN IM DECREASED GLUCOSE; Start 12/27/16 at 02:00 Glucose (Glutose) 15 gm Q15M PRN BUCCAL DECREASED GLUCOSE; Start 12/27/16 at 02 :00 Miscellaneous Information Patients own medicat... BID@10,16 XX ; Start 12/27/16 at 10:00 Atorvastatin Calcium (Lipitor) 20 mg HS PO Last administered on 12/30/16 20:05 ; Admin Dose 20 MG; Start 12/27/16 at 21:00 Enoxaparin Sodium (Lovenox) 40 mg DAILY SC Last administered on 12/31/16 08:27 ; Admin Dose 40 MG; Start 12/27/16 at 19:00 Simethicone (Mylicon) 80 mg Q6 PRN PO DISTENSION/GAS/BLOATING Last administered on 12/29/16 22:30; Admin Dose 80 MG; Start 12/29/16 at 22:00 ANA MOYA Dec 31, 2016 14:59
[2016-12-31] MEDS: SOD CHLORIDE 0.45% 1,000 ML IV SCH ×2 (17:55→22:40)
[2016-12-31 20:50] VITALS: BP 117/70; RESP 18
[2016-12-31] MEDS: CEFTRIAXONE 1 GM/50 ML (PMX) 50 ML IVPB SCH (20:54)
[2016-12-31] MEDS: ATORVASTATIN 20 MG TAB PO SCH (20:54)
[2017-01-01] MEDS: ACCU-CHEK XX SCH (02:00)
[2017-01-01] MEDS: morphine 2 MG INJ IV PRN ×4 (04:44→20:19)
[2017-01-01 07:27] LABS: CALCIUM 9.7 mg/dl (8.4-10.2); CREATININE 0.48 mg/dl (0.61-1.24); POTASSIUM 3.8 mmol/L (3.5-5.1)
[2017-01-01] MEDS: INSULIN ASPART [NOVOLOG] 3 ML PEN SC SCH ×4 (08:00→20:18)
[2017-01-01 08:02] VITALS: BP 125/79; RESP 20
[2017-01-01] MEDS: SENNA TAB PO SCH ×2 (08:49→20:05)
[2017-01-01] MEDS: metFORMIN 500 MG TAB PO SCH ×2 (08:50→17:46)
[2017-01-01] MEDS: DOCUSATE SODIUM 100 MG CAP PO SCH ×2 (08:50→20:05)
[2017-01-01] MEDS: GABAPENTIN 400 MG CAP PO SCH ×3 (08:50→20:05)
[2017-01-01] MEDS: ENOXAPARIN 40 MG/0.4 ML SYG SC SCH (08:56)
[2017-01-01] MEDS: SOD CHLORIDE 0.45% 1,000 ML IV SCH (12:23)
--- NOTE | 2017-01-01 18:14 | PN ---
Date/Time of Note Date/Time of Note DATE: 01/01/17 TIME: 18:11 Assessment/Plan VTE Prophylaxis VTE Prophylaxis Intervention: SCD's Lines/Catheters [facility] Peripheral IV Urinary Cath still in place: No Assessment/Plan Chief Complaint/Hosp Course No acute events, anticipate discharge home tomorrow after completion of last dose of antibiotics. Assessment/Plan - Complicated UTI, Continue Rocephin. - Acute non intractable tension-type headache- CT negative - Enlarging mass-like area of consolidation in the left lower lobe. Dr Cortes is following in Pulmonology consultation. - Systemic inflammatory response syndrome with leukocytosis secondary to urinary tract infection. - Paraplegia. - Neurogenic bladder. - Peripheral neuropathy. - History of deep venous thrombosis. - Diabetes mellitus. Continue metformin and NovoLog per mild algorithm sliding scale. Further, further recommendations based on clinical course plan of care discussed with Dr. Vazquez. Problems: Exam/Review of Systems Vital Signs Vitals Vital Signs Date Time Temp Pulse Resp B/P Pulse Ox O2 Delivery O2 Flow Rate FiO2 01/01/17 08:02 97.5 79 20 125/79 98 Intake and Output 12/31/16 12/31/16 01/01/17 15:00 23:00 07:00 Intake Total 1390 ml 1050 ml Output Total 1750 ml 1550 ml Balance -360 ml -500 ml Exam Constitutional: alert, oriented Psych: no complaints Neck: supple Respiratory: clear to auscultation Cardiovascular: nl pulses Gastrointestinal: non-tender, soft Extremities: normal pulses (paraplegic) Skin: nl turgor Results Result Diagram: 12/31/16 0520 01/01/17 0450 Results 24 hrs Laboratory Tests Test 12/31/16 21:06 01/01/17 04:50 01/01/17 08:05 01/01/17 12:13 Bedside Glucose 95 113 100 Sodium Level 142 Potassium Level 3.8 Chloride Level 105 Carbon Dioxide Level 24 Anion Gap 17 H Blood Urea Nitrogen 11 Creatinine 0.48 L Glucose Level 108 Calcium Level 9.7 Test 01/01/17 17:29 Bedside Glucose 109 Medications Medications Current Medications Ceftriaxone Sodium 50 ml @ 100 mls/hr Q24H IVPB Last administered on t 20:54; Admin Dose 100 MLS/HR; Start 12/27/16 at 21:00 Sodium Chloride (1/2 NS) 1,000 ml @ 60 mls/hr [id number] IV Last administered on 01/01/17 12:23; Admin Dose 60 MLS/HR; Start 12/27/16 at 02:00 Acetaminophen (Tylenol Tab) 650 mg Q4H PRN PO PAIN AND OR ELEVATED TEMP; Start 12/27/16 at 02:00 Morphine Sulfate (morphine) 2 mg Q4H PRN IV PAIN Last administered on 13:47; Admin Dose 2 MG; Start 12/27/16 at 02:00 Gabapentin (Neurontin) 400 mg TID PO Last administered on 01/01/17 12:22; Admin Dose 400 MG; Start 12/27/16 at 09:00 Diagnostic Test (Pha) (Accu-Chek) 1 ea 02 XX ; Start 12/27/16 at 02:00 Docusate Sodium (Colace) 100 mg BID PO Last administered on 01/01/17 08:50; Admin Dose 100 MG; Start 12/27/16 at 09:00 Senna (Senokot) 2 tab BID PO Last administered on 12/31/16 20:54; Admin Dose 2 TAB; Start 12/27/16 at 09:00 Miscellaneous Information 1 ea NOTE XX ; Start 12/27/16 at 02:00 Glucose (Glutose) 15 gm Q15M PRN PO DECREASED GLUCOSE; Start 12/27/16 at 02:00 Glucose (Glutose) 22.5 gm Q15M PRN PO DECREASED GLUCOSE; Start 12/27/16 at 02: 00 Dextrose (D50w Syringe) 25 ml Q15M PRN IV DECREASED GLUCOSE; Start 12/27/16 at 02:00 Dextrose (D50w Syringe) 50 ml Q15M PRN IV DECREASED GLUCOSE; Start 12/27/16 at 02:00 Glucagon (Glucagen) 1 mg Q15M PRN IM DECREASED GLUCOSE; Start 12/27/16 at 02:00 Glucose (Glutose) 15 gm Q15M PRN BUCCAL DECREASED GLUCOSE; Start 12/27/16 at 02 :00 Miscellaneous Information Patients own medicat... BID@10,16 XX ; Start 12/27/16 at 10:00 Atorvastatin Calcium (Lipitor) 20 mg HS PO Last administered on 12/31/16 20:54 ; Admin Dose 20 MG; Start 12/27/16 at 21:00 Enoxaparin Sodium (Lovenox) 40 mg DAILY SC Last administered on 01/01/17 08:56 ; Admin Dose 40 MG; Start 12/27/16 at 19:00 Simethicone (Mylicon) 80 mg Q6 PRN PO DISTENSION/GAS/BLOATING Last administered on 12/29/16 22:30; Admin Dose 80 MG; Start 12/29/16 at 22:00 ANA MOYA Jan 01, 2017 18:14
[2017-01-01] MEDS: CEFTRIAXONE 1 GM/50 ML (PMX) 50 ML IVPB SCH (20:04)
[2017-01-01] MEDS: ATORVASTATIN 20 MG TAB PO SCH (20:05)
[2017-01-01 20:15] VITALS: BP 127/71; RESP 21
[2017-01-02] MEDS: ACCU-CHEK XX SCH (02:00)
[2017-01-02] MEDS: morphine 2 MG INJ IV PRN ×3 (03:28→14:11)
[2017-01-02] MEDS: INSULIN ASPART [NOVOLOG] 3 ML PEN SC SCH ×4 (08:00→20:06)
[2017-01-02] MEDS: metFORMIN 500 MG TAB PO SCH ×2 (08:05→17:29)
[2017-01-02 08:11] VITALS: BP 134/86; RESP 18
[2017-01-02] MEDS: DOCUSATE SODIUM 100 MG CAP PO SCH ×2 (09:16→20:06)
[2017-01-02] MEDS: SENNA TAB PO SCH ×2 (09:16→20:05)
[2017-01-02] MEDS: SOD CHLORIDE 0.45% 1,000 ML IV SCH (09:16)
[2017-01-02] MEDS: GABAPENTIN 400 MG CAP PO SCH ×3 (09:16→20:06)
[2017-01-02] MEDS: ENOXAPARIN 40 MG/0.4 ML SYG SC SCH (09:18)
--- NOTE | 2017-01-02 18:46 | DS ---
Date/Time of Note Date/Time of Note DATE: 01/02/17 TIME: 18:41 Discharge Summary Admission/Discharge Info Admit Date/Time Dec 26, 2016 at 21:04 Discharge Date/Time Discharge Diagnosis - Complicated UTI, Continue Rocephin. - Acute non intractable tension-type headache- CT negative - Enlarging mass-like area of consolidation in the left lower lobe. Dr Cortes is following in Pulmonology consultation. - Systemic inflammatory response syndrome with leukocytosis secondary to urinary tract infection. - Paraplegia. - Neurogenic bladder. - Peripheral neuropathy. - History of deep venous thrombosis. - Diabetes mellitus. Continue metformin and NovoLog per mild algorithm sliding scale. Patient Condition: Good Hx of Present Illness This is a 46-year-old male patient with history of recurrent urinary tract infections, bilateral lower extremity paralysis and neurogenic bladder requiring daily catheterization, peripheral neuropathy, dyslipidemia, diabetes mellitus, history of DVT is admitted with complains of right sided headache 1 day. He has a history of lower extremity paralysis and neurogenic bladder, has to catheterize bladder daily to avoid. He denies fevers or chills, no chest pain or shortness of breath, no cough, no vomiting or diarrhea. Patient is admitted under Dr Vazquez for further evaluation and treatment. ROS All systems reviewed and are negative except as per history of present illness. Hospital Course - Complicated UTI, completed treatment with Rocephin. - Acute non intractable tension-type headache, resolved, CT of the head was negative. - Enlarging mass-like area of consolidation in the left lower lobe. Dr Cortes is following in Pulmonology consultation. Per pulmonology and the mastoid is benign and no further workup required. - Systemic inflammatory response syndrome with leukocytosis secondary to urinary tract infection, resolved. - Paraplegia. - Neurogenic bladder. Patient was educated on proper technique of in and out catheter. - Peripheral neuropathy. - History of deep venous thrombosis. - Diabetes mellitus. Continued metformin and NovoLog per mild algorithm sliding scale. Home Meds Reported Medications Glipizide* (Glipizide*) 5 Mg Tablet, 2.5 MG PO AC BREAKFAST DINNER, TAB 12/26/16 Docusate Sodium* (Docusate Sodium*) 100 Mg Capsule, 100 MG PO DAILY Y for CONSTIPATION, CAP 06/20/15 Atorvastatin Calcium* (Atorvastatin Calcium*) 20 Mg Tablet, 20 MG PO QHS, #30 TAB 06/19/15 Gabapentin* (Gabapentin*) 400 Mg Capsule, 400 MG PO QID 10/30/13 Discontinued Reported Medications Ibuprofen* (Ibuprofen*) 400 Mg Tablet, 400 MG PO TID Y for PAIN, TAB 06/20/15 Cholecalciferol* (Vitamin D3*) 1,000 Unit Tablet, 1000 UNIT PO DAILY, TAB 06/19/15 Gabapentin* (Gabapentin*) 300 Mg Capsule, 300 MG PO QID 10/30/13 Warfarin Sodium (Coumadin) 7.5 Mg Tablet, 7.5 MG PO 10/30/13 Warfarin Sodium (Coumadin) 10 Mg Tablet, 10 MG PO 10/29/13 Docusate Sodium (Doc-Q-Lace) 100 Mg Capsule, 100 MG PO BID 10/29/13 Discontinued Scripts Tramadol HCl (Tramadol HCl) 50 Mg Tablet, 50 MG PO Q4 Y for PAIN, #20 TAB Prov:CINDY GARDUNO PA-C 10/30/16 Cephalexin* (Cephalexin*) 500 Mg Capsule, 500 MG PO BID, #14 CAP Prov:ANA MOYA 06/22/15 Primary Care Provider Not On Staff Doctor Time spent on discharge: > 30 minutes Pending Labs Laboratory Tests Test 01/01/17 20:08 01/02/17 08:10 01/02/17 12:09 01/02/17 17:18 Bedside Glucose 116mg/dL (70-220) 122mg/dL (70-220) 108mg/dL (70-220) 90mg/dL (70-220) ANA MOYA Jan 02, 2017 18:46
[2017-01-02] MEDS: CEFTRIAXONE 1 GM/50 ML (PMX) 50 ML IVPB SCH (18:55)
[2017-01-02] MEDS: ATORVASTATIN 20 MG TAB PO SCH (20:06)
[2017-01-02 20:29] VITALS: BP 130/72; RESP 18
== END 2017-01-02 20:48 | disposition home or self-care (01) | DRG 690 ==
LOC: E/R 17:55 → PP2 21:04
PROVIDERS: ADMIT Internal Medicine; ATTEND Internal Medicine
DX: N39.0 Urinary tract infection, site not specified (principal); G82.20 Paraplegia, unspecified; E11.42 Type 2 diabetes mellitus with diabetic polyneuropathy; B96.20 Unspecified Escherichia coli [E. coli] as the cause of diseases classified elsewhere; G44.209 Tension-type headache, unspecified, not intractable; R91.8 Other nonspecific abnormal finding of lung field; E78.5 Hyperlipidemia, unspecified; Z86.718 Personal history of other venous thrombosis and embolism; N31.2 Flaccid neuropathic bladder, not elsewhere classified; G89.29 Other chronic pain
CPT/HCPCS: 70450; 71010; 71250; 80048; 80053; 81001; 82962; 83036; 83690; 85025; 87040; 87081; 87086; A4310; J0696; J1650; J1815; J2270; J2405; J7030

== ENCOUNTER 2017-08-31 21:15 | Inpatient (IN) | END 2017-09-06 18:46 | disposition home or self-care (01) | DRG 872 ==

== ENCOUNTER 2018-03-28 19:27 | Inpatient (IN) | END 2018-04-02 19:56 | disposition home or self-care (01) | DRG 872 ==

== ENCOUNTER 2018-11-04 07:58 | Inpatient (IN) | payer MEDICARE, OTHER ==
[~2018-11-04] VITALS: Ht 175.3 cm; Wt 103.8 kg
[~2018-11-04 07:58] MED LIST changes: -CHOL100062 PO; -COU75 PO; -DOCU100C PO; -GABA300C16 PO; +GLIP5TAB13 PO; -IBUP400T22 PO; +LOSA50TA14 PO; +METF500T PO; -TRAM50TA2 PO
[2018-11-04] MEDS ORDERED: SOD CHLORIDE 0.9% 1,000 ML IV STA ×2 (08:41→09:54)
[2018-11-04] MEDS ORDERED: morphine 4 MG/ML VIAL IV STA (08:41)
[2018-11-04] MEDS ORDERED: ONDANSETRON 4 MG INJ IV STA (08:41)
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
[2018-11-04] MEDS ORDERED: LORAZEPAM 2 MG INJ IV ONE (09:00)
[2018-11-04] MEDS ORDERED: LINA145C PO (09:38)
[2018-11-04] MEDS ORDERED: ATOR20TA38 PO (09:38)
[2018-11-04] MEDS ORDERED: LOSA50TA14 PO (09:39)
[2018-11-04] MEDS ORDERED: BACL10TA PO (09:39)
[2018-11-04] MEDS ORDERED: GABA-526 PO (09:39)
[2018-11-04] MEDS ORDERED: ALPR0.254 PO (09:40)
[2018-11-04] MEDS ORDERED: GLIP5TAB13 PO (09:41)
[2018-11-04] MEDS ORDERED: NITR-58 PO (09:41)
[2018-11-04] MEDS ORDERED: HYDR-4011 PO (09:42)
[2018-11-04] MEDS ORDERED: HYDROmorphONE 1 MG/ML SYG IV STA (09:54)
[2018-11-04] MEDS ORDERED: ALPR0.5T PO (10:25)
[2018-11-04] MEDS ORDERED: NAPR-985 PO (10:25)
[2018-11-04] MEDS: SOD CHLORIDE 0.9% 1,000 ML IV SCH ×3 (10:59→22:08)
[2018-11-04] MEDS ORDERED: ZOLPIDEM 5 MG TAB PO PRN (11:00)
[2018-11-04] MEDS ORDERED: CEFTRIAXONE 1 GM/50 ML (PMX) 50 ML IVPB ONE (11:00)
[2018-11-04] MEDS ORDERED: DOCUSATE SODIUM 100 MG CAP PO PRN (11:00)
[2018-11-04] MEDS ORDERED: NACL 0.9% 3 ML SYG IV SCH (11:00)
[2018-11-04] MEDS ORDERED: LORAZEPAM 2 MG INJ IV PRN (11:00)
[2018-11-04] MEDS ORDERED: ACETAMINOPHEN 325 MG TAB PO PRN (11:00)
[2018-11-04] MEDS: ENOXAPARIN 40 MG/0.4 ML SYG SC SCH (11:18)
[2018-11-04] MEDS ORDERED: ALPRAZOLAM 0.5 MG TAB PO PRN (11:30)
[2018-11-04] MEDS ORDERED: HYDROCODONE/APAP (5/325) TAB PO PRN (11:30)
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
[2018-11-04] MEDS: GABAPENTIN 300 MG CAP PO SCH ×2 (13:33→22:14)
[2018-11-04] MEDS: LOSARTAN 50 MG TAB PO SCH (13:34)
[2018-11-04] MEDS: glipiZIDE 5 MG TAB PO SCH ×2 (13:47→23:24)
[2018-11-04] MEDS: PIPER-TAZO 3.375 GM IV (PMX) 100 ML IVPB SCH ×2 (13:53→22:18)
[2018-11-04 18:12] VITALS: PULSE 106
[2018-11-04 18:20] VITALS: BP 110/64; PULSE 100; RESP 18
[2018-11-04 19:41] VITALS: Ht 175.3 cm; Wt 103.8 kg
[2018-11-04 20:00] VITALS: BP 115/66; PULSE 103; RESP 18
[2018-11-04 21:07] VITALS: PULSE 100
[2018-11-04] MEDS: ATORVASTATIN 20 MG TAB PO SCH (22:13)
[2018-11-04] MEDS: BACLOFEN 10 MG TAB PO SCH (22:14)
[2018-11-04] MEDS: HYDROCODONE/APAP (5/325) TAB PO PRN (22:15)
[2018-11-05] VITALS (11 sets, daily range): BP systolic 100–124; BP diastolic 62–69; PULSE 76–101; RESP 18–20
[2018-11-05] MEDS: SOD CHLORIDE 0.9% 1,000 ML IV SCH ×5 (02:59→23:46)
[2018-11-05] MEDS: PIPER-TAZO 3.375 GM IV (PMX) 100 ML IVPB SCH ×3 (05:39→21:39)
[2018-11-05] MEDS: GABAPENTIN 300 MG CAP PO SCH ×3 (08:06→20:38)
[2018-11-05] MEDS: HYDROCODONE/APAP (5/325) TAB PO PRN ×2 (08:06→19:00)
[2018-11-05] MEDS: LOSARTAN 50 MG TAB PO SCH (08:07)
[2018-11-05] MEDS: ENOXAPARIN 40 MG/0.4 ML SYG SC SCH (08:10)
[2018-11-05] MEDS: glipiZIDE 5 MG TAB PO SCH ×2 (09:04→20:39)
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
[2018-11-05] MEDS: BACLOFEN 10 MG TAB PO SCH (20:38)
[2018-11-05] MEDS: ATORVASTATIN 20 MG TAB PO SCH (20:38)
[2018-11-06] VITALS (8 sets, daily range): BP systolic 110–121; BP diastolic 67–76; PULSE 68–90; RESP 18–20
[2018-11-06] MEDS: SOD CHLORIDE 0.9% 1,000 ML IV SCH ×2 (02:59→08:35)
[2018-11-06] MEDS: PIPER-TAZO 3.375 GM IV (PMX) 100 ML IVPB SCH ×2 (06:10→14:00)
[2018-11-06] MEDS: HYDROCODONE/APAP (5/325) TAB PO PRN (08:29)
[2018-11-06] MEDS: GABAPENTIN 300 MG CAP PO SCH ×2 (08:29→12:37)
[2018-11-06] MEDS: LOSARTAN 50 MG TAB PO SCH (08:29)
[2018-11-06] MEDS: glipiZIDE 5 MG TAB PO SCH (08:30)
[2018-11-06] MEDS: ENOXAPARIN 40 MG/0.4 ML SYG SC SCH (08:34)
[2018-11-06] MEDS ORDERED: GLIP5TAB13 PO (10:15)
[2018-11-06] MEDS ORDERED: CEPH500C PO (10:15)
--- NOTE | 2018-11-06 10:16 | PDOCDIS ---
Discharge Instructions CONDITION [id number] Patient Condition: [id number] Good HOME CARE INSTRUCTIONS: [id number] Diet Instructions: [id number] Activity Restrictions: [id number] No Restrictions FOLLOW UP/APPOINTMENTS Follow-up Plan pcp 1 week TAHIRA SANCHEZ MD November 06, 2018 10:16
--- NOTE | 2018-11-06 14:16 | CONS ---
Assessment/Plan Assessment/Plan Hospital Course (Demo Recall) Patient is alert feels good denies pain no fevers overnight. Urine culture growing E. coli. Indwelling's: Jackson catheter Antimicrobials: Zosyn CT of the abdomen and pelvis on admission revealed no evidence of bowel obstruction or acute inflammatory process Physical examination: Well-developed obese middle-aged man who is alert in no distress. Head atraumatic normocephalic neck is supple chest rise symmetrical breath sounds clear. Abdomen soft bowel sounds present. Extremities without cyanosis. Lower extremities wasted Assessment: 1. Sepsis, present on admission 2. E. coli UTI 3. Paraplegia 4. Neurogenic bladder with urinary retention requiring self-catheterization Patient remains stable, okay discharge on oral Keflex for 7 more days Consultation Date/Type/Reason Admit Date/Time Nov 04, 2018 at 10:55 Initial Consult Date Type of Consult id Date/Time of Note DATE: 11/06/18 TIME: 14:15 Exam/Review of Systems Exam Vitals Vital Signs Date Temp Pulse Resp B/P (MAP) Pulse Ox O2 O2 Flow FiO2 Time Delivery Rate 11/06/18 88 12:16 11/06/18 98.0 18 119/67 93 12:00 (84) 11/04/18 Room Air 18:20 Intake and Output 11/05/18 11/05/18 11/06/18 1515:00 23:00 07:00 IntakeIntake Total 1100 ml 1200 ml 2295 ml OutputOutput Total 2100 ml 3400 ml BalanceBalance 1100 ml -900 ml -1105 ml Results Result Diagram: 11/06/18 0515 11/05/18 0523 Results 24hrs Laboratory Tests Test 11/05/18 20:45 11/06/18 05:15 11/06/18 07:29 Bedside Glucose 183 118 White Blood Count 13.8 #H Red Blood Count 4.74 Hemoglobin 14.1 Hematocrit 43.1 Mean Corpuscular Volume 90.9 Mean Corpuscular Hemoglobin 29.7 Mean Corpuscular Hemoglobin Concent 32.7 Red Cell Distribution Width 17.1 H Platelet Count 248 Mean Platelet Volume 11.0 H Immature Granulocytes % 0.400 Neutrophils % 61.3 Lymphocytes % 29.0 Monocytes % 8.8 Eosinophils % 0.3 Basophils % 0.2 Nucleated Red Blood Cells % 0.0 Immature Granulocytes # 0.060 H Neutrophils # 8.5 H Lymphocytes # 4.0 H Monocytes # 1.2 H Eosinophils # 0.0 Basophils # 0.0 Nucleated Red Blood Cells # 0.0 Medications Medication Current Medications Sodium Chloride 1,000 ml @ 125 mls/hr Q8H IV Last administered on 11/06/18 08:35; Admin Dose 125 MLS/HR; Start 11/04/18 at 10:59 IV Flush (NS 3 ml) 3 ml PER PROTOCOL IV ; Start 11/04/18 at 11:00 Lorazepam (Ativan) 0.5 mg Q6H PRN IV .ANXIETY Last administered on 11/04/18 13:21; Admin Dose 0.5 MG; Start 11/04/18 at 11:00 Acetaminophen (Tylenol Tab) 650 mg Q6H PRN PO .PAIN 1-3 OR TEMP; Start 11/04/18 at 11:00 Zolpidem Tartrate (Ambien) 5 mg QHS PRN PO .INSOMNIA Last administered on 11/04/18 23:25; Admin Dose 5 MG; Start 11/04/18 at 11:00 Docusate Sodium (Colace) 100 mg Q12H PRN PO .CONSTIPATION Last administered on 11/05/18 08:06; Admin Dose 100 MG; Start 11/04/18 at 11:00 Enoxaparin Sodium (Lovenox) 40 mg DAILY SC Last administered on 11/06/18 08:34; Admin Dose 40 MG; Start 11/04/18 at 11:00 Piperacillin Sod/ Tazobactam Sod 100 ml @ 200 mls/hr Q8 IVPB Last administered on 11/06/18 06:10; Admin Dose 200 MLS/HR; Start 11/04/18 at 14:00 Alprazolam (Xanax) 0.5 mg TID PRN PO ANXIETY; Start 11/04/18 at 11:30 Atorvastatin Calcium (Lipitor) 20 mg QHS PO Last administered on 11/05/18 20:38; Admin Dose 20 MG; Start 11/04/18 at 21:00 Baclofen (Lioresal) 5 mg QHS PO Last administered on 11/05/18 20:38; Admin Dose 5 MG; Start 11/04/18 at 21:00 Gabapentin (Neurontin) 600 mg TID PO Last administered on 5/2/19at 12:37; Admin Dose 600 MG; Start 11/04/18 at 13:00 Glipizide (Glucotrol) 2.5 mg BID PO Last administered on 11/06/18 08:30; Admin Dose 2.5 MG; Start 11/04/18 at 11:30 Losartan Potassium (Cozaar) 50 mg DAILY PO Last administered on 11/06/18 08:29; Admin Dose 50 MG; Start 11/04/18 at 11:30 Acetaminophen/ Hydrocodone Bitart ([place] (5/325)) 1 tab Q6H PRN PO PAIN Last administered on 11/06/18 08:29; Admin Dose 1 TAB; Start 11/04/18 at 21:52 Miscellaneous Information Patients own medicat... BID@ XX ; Start 11/05/18 at 10:00 CARLYN YATES NP November 06, 2018 14:16
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
== END 2018-11-06 14:50 | disposition home or self-care (01) | DRG 690 ==
LOC: E/R 07:58 → 6WM 10:55
PROVIDERS: ADMIT Internal Medicine; ATTEND Internal Medicine
DX: N39.0 Urinary tract infection, site not specified (principal); G82.20 Paraplegia, unspecified; F11.20 Opioid dependence, uncomplicated; E11.40 Type 2 diabetes mellitus with diabetic neuropathy, unspecified; N31.9 Neuromuscular dysfunction of bladder, unspecified; I10 Essential (primary) hypertension; F41.9 Anxiety disorder, unspecified; R00.0 Tachycardia, unspecified; E78.00 Pure hypercholesterolemia, unspecified; G89.4 Chronic pain syndrome; B96.20 Unspecified Escherichia coli [E. coli] as the cause of diseases classified elsewhere; E86.0 Dehydration; R33.8 Other retention of urine; Z79.84 Long term (current) use of oral hypoglycemic drugs; Z79.01 Long term (current) use of anticoagulants
CPT/HCPCS: 36415; 74176; 80048; 80053; 81001; 82962; 83036; 83605; 83690; 84484; 85025; 87086; 96361; 96374; 96375; J0696; J1170; J1650; J2060; J2270; J2405; J2543; J7030